=== PATIENT | female | born 1980 | race Caucasian/White ===

== ENCOUNTER 2016-11-01 20:10 | Emergency (ER) | payer OTHER ==
--- NOTE | 2016-11-01 22:21 | ED ---
Kwan Grant Billy, scribed for Ney Parker MD on 11/01/16 at 2209 . Lower Extremity - HPI Summary HPI Summary: Patient is a 36 year-old female coming to [facility] for evaluation of right knee pain and swelling for two weeks. Pain severity 4/10. She is able to move and bend the knee without any significant pain. She has used ibuprofen and ice with no improvement to the swelling. Denies any fever. She states she has had similar symptoms in the past but has never seen a specialist for further care. - History of Current Complaint Chief Complaint: EDExtremityLower Stated Complaint: RIGHT KNEE PAIN Time Seen by Provider: 11/01/16 21:43 Hx Obtained From: Patient Hx Last Menstrual Period: years Mechanism Of Injury: Unknown Onset of Pain: Days Severity Initially: Moderate Severity Currently: Moderate Pain Intensity: 4 Pain Scale Used: 0-10 Numeric Timing: Constant Location: Is Discrete @ - right knee Associated Signs And Symptoms: Positive: Swelling Aggravating Factor(s): Nothing Alleviating Factor(s): Nothing Able to Bear Weight: Yes - Allergies/Home Medications Allergies/Adverse Reactions: Allergies Allergy/AdvReac Type Severity Reaction Status Date / Time Latex Allergy Intermediate Rash Verified 06/23/16 17:25 Adhesive Tape Allergy Mild Rash Verified 06/23/16 17:25 Amoxicillin AdvReac Mild See Comment Verified 06/23/16 17:25 PMH/Surg Hx/FS Hx/Imm Hx Endocrine/Hematology History: Denies: Hx Diabetes, Hx Thyroid Disease Cardiovascular History: Reports: Hx Embolism - Pulmonary, Other Cardiovascular Problems/Disorders - ENDOCARDITIS Denies: Hx Hypertension Respiratory History: Reports: Hx Asthma, Hx Pulmonary Embolism Denies: Hx Chronic Obstructive Pulmonary Disease (COPD) GI History: Denies: Hx Ulcer History: Reports: Hx Kidney Stones - 2002, Hx Renal Disease - history of stones Musculoskeletal History: Reports: Hx Orthopedic Injury - Right wrist sx Sensory History: Denies: Hx Contacts or Glasses, Hx Hearing Aid Opthamlomology History: Denies: Hx Contacts or Glasses Psychiatric History: Reports: Hx Substance Abuse Denies: Hx Anxiety, Hx Attention Deficit Hyperactivity Disorder, Hx Eating Disorder, Hx Depression, Hx Panic Disorder, Hx Post Traumatic Stress Disorder, Hx Inpatient Treatment, Hx Schizophrenia, Hx Bipolar Disorder, Hx Suicide Attempt, Hx of Violent Episodes Against Others, Other Psychiatric Issues/ Disorders - Surgical History Surgery Procedure, Year, and Place: tubal ligation; plate in wrist summer 2012 Hx Anesthesia Reactions: No Infectious Disease History: Yes Infectious Disease History: Reports: Hx Hepatitis - HCV unconfirmed, Hx of Known /Suspected MRSA Denies: Hx Clostridium Difficile, Hx Human Immunodeficiency Virus (HIV), Hx Shingles, Hx Tuberculosis, Hx Known/Suspected VRE, Hx Known/Suspected VRSA, History Other Infectious Disease, Traveled Outside the [place] in Last 30 Days - Family History Family History: No FHx of malignant hyperthermia or anesthesia reaction. - Social History Alcohol Use: None Alcohol Amount: per pt report she does not use etoh Hx Substance Use: Yes Substance Use Type: Reports: Heroin, Marijuana, Synthetic Drugs Substance Use Comment - Amount & Last Used: daily Hx Tobacco Use: Yes Smoking Status (MU): Heavy Every Day Tobacco Smoker Type: Cigarettes Amount Used/How Often: 10-15 c igarettes daily Length of Time of Smoking/Using Tobacco: 20 years Have You Smoked in the Last Year: Yes Review of Systems Negative: Fever Positive: Arthralgia, Edema All Other Systems Reviewed And Are Negative: Yes Physical Exam Triage Information Reviewed: Yes Vital Signs On Initial Exam: Initial Vitals Temp Pulse Resp BP Pulse Ox 98.2 F 84 18 115/60 100 11/01/16 20:17 11/01/16 20:17 11/01/16 20:17 11/01/16 20:17 11/01/16 20:17 Vital Signs Reviewed: Yes Appearance: Positive: Well-Appearing, No Pain Distress Skin: Positive: Warm Head/Face: Positive: Normal Head/Face Inspection Eyes: Positive: H[place] ENT: Positive: Hearing grossly normal Neck: Positive: Supple Respiratory/Lung Sounds: Positive: Breath Sounds Present Musculoskeletal: Positive: Other - RT KNEE MILD WARMTH AND SWELLING, MINMAL TENDER, ESSENTIALLY FROM WITH MINIMNAL DISCOMFORT, NO INSTABILITY OR LAXATY Neurological: Positive: Sensory/Motor Intact, Alert, Oriented to Person Place, Time Psychiatric: Positive: Affect/Mood Appropriate Diagnostics - Vital Signs Vital Signs Temp Pulse Resp BP Pulse Ox 11/01/16 20: 98.2 F 84 18 115/60 100 - Laboratory Result Diagrams: 11/01/16 22:40 11/01/16 22:40 Lab Statement: Any lab studies that have been ordered have been reviewed, and results considered in the medical decision making process. - Radiology right knee xray Radiology Interpretation Completed By: Radiologist - Moderate to large right knee joint effusion Re-Evaluation - Re-Evaluation First Eval Comment: results d/w pt Lower Extremity Course/Dx - Diagnoses Provider Diagnoses: Knee swelling Discharge - Discharge Plan Condition: Stable Disposition: HOME Prescriptions: Naproxen TAB* [Naprosyn TAB*] 500 mg PO BID #20 tab Patient Education Materials: Swollen Knee Joint (ED) Referrals: Sharmin Jamison MD [Primary Care Provider] - Brandon Diaz MD [Medical Doctor] - The documentation as recorded by the Kwan lambert Billy accurately reflects the service I personally performed and the decisions made by me, Ney Parker MD.
--- NOTE | 2016-11-01 22:54 | RAD ---
INDICATION: Right knee swelling and pain COMPARISON: None TECHNIQUE: 2 view radiograph of the right knee. FINDINGS: The visualized bones are well-corticated and properly aligned. The joint spaces are properly maintained. There is a moderate to large joint effusion. There is no acute fracture, dislocation or other focal bony abnormality. IMPRESSION: Moderate to large right knee joint effusion .
[2016-11-01 22:59] LABS: Hematocrit 42 % (35-47); Hemoglobin 13.9 g/dl (12.0-16.0); Mean Corpuscular HGB Conc 33 g/dl (31-36); Mean Corpuscular Hemoglobin 28 pg (27-31); Mean Corpuscular Volume 86 fL (80-97); Mean Platelet Volume 8 um3 (7.4-10.4); Red Blood Count 4.93 10^6/ul (4.0-5.4); Red Cell Distribution Width 13 % (10.5-15)
[2016-11-01 23:14] LABS: Albumin 3.6 g/dL (3.2-5.2); BUN/Creatinine Ratio 17.3 (8-20); Calcium 9.4 mg/dL (8.6-10.3); EGFR African American 113.1 (>60); EGFR Non-African American 87.9 (>60); Potassium 4.3 mmol/L (3.5-5.0); Total Bilirubin 0.3 mg/dL (0.2-1.0); Total Protein 7.6 g/dL (6.4-8.9)
[2016-11-01 23:41] LABS: Erythrocyte Sed Rate 46 mm/Hr (0-14)
[2016-11-01] MEDS ORDERED: Naproxen TAB* 250 MG PO ONE (23:41)
[2016-11-02 00:49] VITALS: BP 138/98
== END 2016-11-02 00:48 | disposition home or self-care (01) ==
LOC: ED 20:10
DX: M25.461 Effusion, right knee (principal); M25.561 Pain in right knee; F17.210 Nicotine dependence, cigarettes, uncomplicated; Z88.0 Allergy status to penicillin
CPT/HCPCS: 36415; 80053; 85025; 85652; 99282; A9270-GY

== ENCOUNTER 2017-02-09 15:19 | Emergency (ER) | payer OTHER ==
--- NOTE | 2017-02-09 16:11 | ED ---
Lower Extremity - HPI Summary HPI Summary: 36F presents with right knee swelling for months. She has history of this. No new injury. full ROM. no redness to joint or fever. Takes ibuprofen for it and ices it. no numbness or tingling. - History of Current Complaint Chief Complaint: EDExtremityLower Stated Complaint: RT KNEE SWOLLEN Time Seen by Provider: 02/09/17 15:45 Hx Last Menstrual Period: years Pain Intensity: 0 - Allergies/Home Medications Allergies/Adverse Reactions: Allergies Allergy/AdvReac Type Severity Reaction Status Date / Time Latex Allergy Intermediate Rash Verified 06/23/16 17:25 Adhesive Tape Allergy Mild Rash Verified 06/23/16 17:25 Amoxicillin AdvReac Mild See Comment Verified 06/23/16 17:25 PMH/Surg Hx/FS Hx/Imm Hx Endocrine/Hematology History: Denies: Hx Diabetes, Hx Thyroid Disease Cardiovascular History: Reports: Hx Embolism - Pulmonary, Other Cardiovascular Problems/Disorders - ENDOCARDITIS Denies: Hx Hypertension Respiratory History: Reports: Hx Asthma, Hx Pulmonary Embolism Denies: Hx Chronic Obstructive Pulmonary Disease (COPD) GI History: Denies: Hx Ulcer History: Reports: Hx Kidney Stones - 2002, Hx Renal Disease - history of stones Musculoskeletal History: Reports: Hx Orthopedic Injury - Right wrist sx Sensory History: Denies: Hx Contacts or Glasses, Hx Hearing Aid Opthamlomology History: Denies: Hx Contacts or Glasses Psychiatric History: Reports: Hx Substance Abuse Denies: Hx Anxiety, Hx Attention Deficit Hyperactivity Disorder, Hx Eating Disorder, Hx Depression, Hx Panic Disorder, Hx Post Traumatic Stress Disorder, Hx Inpatient Treatment, Hx Schizophrenia, Hx Bipolar Disorder, Hx Suicide Attempt, Hx of Violent Episodes Against Others, Other Psychiatric Issues/ Disorders - Surgical History Surgery Procedure, Year, and Place: tubal ligation; plate in wrist summer 2012 Hx Anesthesia Reactions: No - Immunization History Date of Tetanus Vaccine: unk Date of Influenza Vaccine: none Infectious Disease History: Yes Infectious Disease History: Reports: Hx Hepatitis - HCV unconfirmed, Hx of Known /Suspected MRSA Denies: Hx Clostridium Difficile, Hx Human Immunodeficiency Virus (HIV), Hx Shingles, Hx Tuberculosis, Hx Known/Suspected VRE, Hx Known/Suspected VRSA, History Other Infectious Disease, Traveled Outside the [place] in Last 30 Days - Family History Known Family History: Positive: Unknown Family History: No FHx of malignant hyperthermia or anesthesia reaction. - Social History Alcohol Use: None Alcohol Amount: per pt report she does not use etoh Hx Substance Use: Yes Substance Use Type: Reports: Heroin, Marijuana, Synthetic Drugs Substance Use Comment - Amount & Last Used: daily Hx Tobacco Use: Yes Smoking Status (MU): Heavy Every Day Tobacco Smoker Type: Cigarettes Amount Used/How Often: 10-15 c igarettes daily Length of Time of Smoking/Using Tobacco: 20 years Have You Smoked in the Last Year: Yes Review of Systems Negative: Fever Negative: Chest Pain Negative: Shortness Of Breath Positive: Edema - right knee All Other Systems Reviewed And Are Negative: Yes Physical Exam Triage Information Reviewed: Yes Vital Signs On Initial Exam: Initial Vitals Temp Pulse Resp BP Pulse Ox 97.8 F 112 18 147/89 100 02/09/17 15:34 02/09/17 15:34 02/09/17 15:34 02/09/17 15:34 02/09/17 15:34 Vital Signs Reviewed: Yes Appearance: Positive: Well-Appearing Skin: Positive: Warm, Dry Head/Face: Positive: Normal Head/Face Inspection Eyes: Positive: Normal, Conjunctiva Clear Respiratory/Lung Sounds: Positive: Clear to Auscultation, Breath Sounds Present Cardiovascular: Positive: Normal, RRR Musculoskeletal: Positive: Strength/ROM Intact - right knee, Edema Right - right knee, Other - good pulses, joint is not hot and no erythema. Diagnostics - Vital Signs Vital Signs Temp Pulse Resp BP Pulse Ox 02/09/17 16:00 97.9 F 104 16 121/73 100 02/09/17 15:34 97.8 F 112 18 147/89 100 - Laboratory Lab Statement: Any lab studies that have been ordered have been reviewed, and results considered in the medical decision making process. Lower Extremity Course/Dx - Course Course Of Treatment: 36F presents with right knee swelling for months. She has history of this. No new injury. full ROM. no redness to joint or fever. Takes ibuprofen for it and ices it. no numbness or tingling. on exam joint does not appear septic or like gout. appears like bursitis, explained treat with RICE and ibuprofen. has been seen here in past for this but at that time joint was slight red which today it is not and had neg workup. told to follow up with ortho for def managment. patient understands and agrees with plan - Diagnoses Differential Diagnosis/HQI/PQRI: Positive: Bursitis, Fracture (Closed), Sprain, Strain Provider Diagnoses: Effusion, right knee Discharge - Discharge Plan Condition: Good Disposition: HOME Patient Education Materials: Swollen Knee Joint (ED) Referrals: Sharmin Jamison MD [Primary Care Provider] - Alexander Rowe MD [Medical Doctor] - Additional Instructions: Take ibuprofen every 6 hours as needed for pain Apply ice, rest, elevate Follow up with ortho Return to ED if develop hot red joint or fever or any new or worsening symptoms
[2017-02-09 16:24] VITALS: BP 129/78
== END 2017-02-09 16:15 | disposition home or self-care (01) ==
LOC: ED 15:19
DX: M25.461 Effusion, right knee (principal); F17.210 Nicotine dependence, cigarettes, uncomplicated; Z88.0 Allergy status to penicillin
CPT/HCPCS: 99282

== ENCOUNTER 2017-05-26 15:08 | Inpatient (IN) | payer OTHER ==
[2017-05-26] MEDS ORDERED: Ondansetron INJ* 2 MG/ML VIAL IV ONE (15:56)
[2017-05-26] MEDS ORDERED: Morphine INJ* 4 MG/ML 1 ML CARPUJECT IV ONE (15:56)
[2017-05-26] MEDS ORDERED: Vancomycin(*) 750 MG in NS 0.9% 250 ML* 250 ML IVPB ONE (16:00)
[2017-05-26] MEDS ORDERED: Vancomycin(*) 1,000 MG VIAL IVPB SCH (16:00)
[2017-05-26 16:03] LABS: Hematocrit 42 % (35-47); Hemoglobin 14.1 g/dl (12.0-16.0); Mean Corpuscular HGB Conc 33 g/dl (31-36); Mean Corpuscular Hemoglobin 28 pg (27-31); Mean Corpuscular Volume 83 fL (80-97); Mean Platelet Volume 10 um3 (7.4-10.4); Red Blood Count 5.12 10^6/ul (4.0-5.4); Red Cell Distribution Width 16 % (10.5-15); White Blood Count 3.1 10^3/ul (3.5-10.8)
[2017-05-26 16:04] LABS: Comments Flag Yes
[2017-05-26 16:08] LABS: Add Diff/Slide Review? Slide Review Added
[2017-05-26 16:09] LABS: Albumin 3.1 g/dL (3.2-5.2); BUN/Creatinine Ratio 37.7 (8-20); EGFR African American 75.9 (>60); Globulin 3.6 g/dL (2-4); Potassium 3.1 mmol/L (3.5-5.0); Total Bilirubin 1.6 mg/dL (0.2-1.0); Total Protein 6.7 g/dL (6.4-8.9)
[2017-05-26] MEDS: NS 0.9% 1000 ML*IV.FLUID IV ONE ×2 (16:10→17:02)
[2017-05-26 16:11] LABS: Troponin I 0.01 ng/mL (<0.04)
--- NOTE | 2017-05-26 16:45 | RAD ---
Indication: Sepsis. Single frontal view of the chest performed at 1600 hours was reviewed. Comparison is made with previous exam dated December 11, 2015. Interstitial edema is noted consistent with vascular congestion. No alveolar consolidation is noted. The heart is mildly enlarged. IMPRESSION: CARDIOMEGALY WITH INTERSTITIAL EDEMA CONSISTENT WITH VASCULAR CONGESTION.
[2017-05-26] MEDS ORDERED: Lidocaine 1%* 5 ML VIAL ONE (17:06)
[2017-05-26] MEDS: NS 0.9% 1000 ML* 3,000 ML IV ONE ×2 (17:32→19:46)
[2017-05-26] MEDS ORDERED: Morphine INJ* 10 MG/ML 1 ML CARPUJECT IV PRN (17:33)
[2017-05-26] MEDS ORDERED: Acetaminophen TAB* 325 MG PO PRN (17:33)
[2017-05-26] MEDS ORDERED: Vancomycin(*) 1,000 MG in NS 0.9% 250 ML* 250 ML IVPB SCH (17:34)
[2017-05-26] MEDS ORDERED: Iodixanol* (CONTRAST) 320 MG/ML 100 ML SDV IV ONE (17:36)
[2017-05-26] MEDS ORDERED: Albuterol 2.5 MG/3 ML NEB.SOL* (0.083%) INH PRN (17:37)
[2017-05-26] MEDS ORDERED: Potassium Chlor TAB* 20 MEQ TAB.ER PO ONE (17:37)
[2017-05-26] MEDS ORDERED: Vancomycin per Pharmacy* NOTE FOLLOW UP PRN (17:48)
--- NOTE | 2017-05-26 18:14 | RAD ---
Indication: Shortness of breath, sepsis. Contrast: Administered 64.2 ml of Contrast -- mg/ml CTA of the chest was performed on IV contrast administration. Coronal and sagittal reconstructed images were obtained. The pulmonary arterial tree is well opacified. No evidence of filling defects are noted. There is periaortic soft tissue which may represent prevascular space adenopathy. There may be subcarinal adenopathy which are low density. The heart demonstrates no pericardial effusion. The lung chen demonstrates innumerable infiltrates of varying sizes throughout both lung chen. Findings are consistent with septic emboli although no cavitation is noted at the current time. The visualized abdominal organs are otherwise unremarkable. IMPRESSION: Diffuse bilateral nodular densities which are poorly marginated and of varying sizes consistent with septic emboli. No definite cavitation is noted. There is suggestion of mediastinal and hilar adenopathy noted.
[2017-05-26] MEDS: NS 0.9% 1000 ML* 1,000 ML IV SCH (19:46)
[2017-05-26] MEDS: Cefepime 2 GM in Dextrose(*) 2 GM/50 ML BAG IV SCH (19:46)
[2017-05-26] MEDS ORDERED: traMADol TAB* 50 MG PO PRN (20:31)
[2017-05-26 21:05] LABS: Urine Bacteria 1+ (Absent); Urine Bilirubin Negative (Negative); Urine Glucose Negative (Negative); Urine Nitrite Negative (Negative)
[2017-05-26] MEDS: Vancomycin(*) 1,000 MG in NS 0.9% 250 ML* 250 ML IVPB SCH (21:49)
--- NOTE | 2017-05-26 21:49 | RAD ---
Indication: Worsening hypoxia. Single frontal view of the chest performed at 2120 hours was reviewed. Comparison is made with previous exam dated earlier the same day. Progressive interstitial and alveolar infiltrates are noted. This may represent worsening pneumonia. IMPRESSION: PROGRESSIVE INTERSTITIAL AND ALVEOLAR INFILTRATES WITH CONSOLIDATION. THIS LIKELY REPRESENTS INFECTIOUS PROCESS.
--- NOTE | 2017-05-26 21:54 | HP ---
CC: [facility]* HISTORY AND PHYSICAL: DATE OF ADMISSION: 05/26/17 PRIMARY CARE PROVIDER: [facility]. She does not have a routine provider over there, but she does see them occasionally. ATTENDING PHYSICIAN WHILE IN THE HOSPITAL: Dr. Donta Wyatt * (report dictated by Odin Hampton NP). CONSULTING INFECTIOUS DISEASES SPECIALIST: Dr. Cain. CONSULTING WINDOWS SYSTEMS ADMINISTRATOR: Dr. Cuenca. CONSULTING APPEALS OFFICER: Dr. Mccarthy. CONSULTING SURGEON: Dr. Montanez. CHIEF COMPLAINT: Left axillary tenderness and abscess. HISTORY OF PRESENTING ILLNESS: Mrs. Tomlin is a 36-year-old female patient, who has a history of asthma along with IV drug use and a history of hepatitis C. She comes into the ED today stating that about 6 to 7 days ago, she was using IV heroin. Shortly thereafter, she noticed a bump underneath her right axilla. She noticed that over the last few days, she was having fevers, chills , aching all over, she was having chest discomfort similar to when she had endocarditis in the past. She had tricuspid endocarditis in 2014. She says there is aching all over, the pain became unbearable toward that swollen area was under her axilla on the right side. It became tender, warm and she was concerned that she may have another active infection. She finally came into the ER. She denied any specific joint pain. She denied having any abdominal pain. She denied any nausea, vomiting, or diarrhea. There has been no URI symptoms. Denies having any bleeding or easy bruising. She came into the ED, was ultimately found to be leukopenic, thrombocytopenic, hypotensive and there was concern for infection and sepsis. We were asked to evaluate for admission. PAST MEDICAL HISTORY: Significant for: 1. IV drug use. 2. Asthma. PAST SURGICAL HISTORY: She has had a tubal ligation. HOME MEDICATIONS: Denied. ALLERGIES TO MEDICATIONS: Include LATEX, TAPE, and AMOXICILLIN. FAMILY HISTORY: Mother in MVA when she was 36. Father's history is unknown. SOCIAL HISTORY: She is a half a pack a day smoker. Does not drink alcohol. She does use IV heroin almost on a daily basis. Surrogate decision maker is her , Bren. REVIEW OF SYSTEMS: There is a documented fever at home, but none documented here, said she got as high as 101. She denies having any significant weight change. No double vision. No ear discharge. No rhinorrhea. No sore throat. No thyroid enlargement. There was chest pain, she describes as sharp stabbing pain, worse with deep breath. No shortness of breath. No abdominal pain. There was no nausea, no vomiting, no dysuria, no frequency. There is no loss of consciousness. No pruritus. No skin ulcerations. Review of 14 systems completed, all others negative. PHYSICAL EXAMINATION GENERAL: At this time, Mrs. Tomlin is a 36-year-old female patient, she appears to be older than stated age, she appears to be chronically ill appearing. She is sitting in the ER stretcher. She does not appear to be in any acute distress. VITAL SIGNS: Initially when she came in with a blood pressure of 73/40, pulse 115, respirations 20, O2 sat 92%, temperature 97.7. Her last blood pressure was 92/50, pulse 95, respirations 15, O2 sat 97%. HEENT: Head is atraumatic. Eyes: EOMs intact. Sclerae are anicteric and not pale. Throat: Oral mucosa appears to be dry. No oropharyngeal erythema. NECK: Supple. LUNGS: Clear to auscultation. They are diminished, but no wheezes, rales, or rhonchi. HEART: Sounds S1, S2. She does have a grade 2-3 murmur in the aortic listening area. ABDOMEN: Soft, flat. She did appear to have splenomegaly on my exam. Bowel sounds present. EXTREMITIES: Pulses were 2+ throughout. She is moving all 4 extremities. NEUROLOGIC: She is awake, she is alert, she is oriented x3. No gross focal deficits. SKIN: Intact. She does have an area under the right axilla area just near the biceps and area of induration, swelling, pain, and tenderness that was aspirated by Dr. Montanez, it is now covered with a Kerlix. DIAGNOSTIC STUDIES/LAB DATA: Revealed WBC of 3.1, RBC of 5.12, hemoglobin 14.1 , hematocrit of 43, platelet count of 18,000. INR 0.96, PTT of 32.6. Sodium was 132, potassium was 3.1, chloride of 96, bicarb 26, BUN 40, creatinine 1.06, glucose 146, lactate 2.9, calcium 9. Total bili 1.6, AST 25, ALT 10, alk phos 155. Troponin 0.01. Albumin of 3.1. She did have a chest x-ray obtained today, on my impression, I do not appreciate any acute infiltrates. It does appear that she has some pulmonary edema. Radiology read it as cardiomegaly with interstitial edema consistent with vascular congestion. She had an EKG obtained today, which showed a normal sinus rhythm at a rate of 75. No ST elevations or T-wave inversions. Old medical records were reviewed again. Previously in the past, she did grow out MRSA in the blood and also has grown out pseudomonas as well in the blood and again she did have previously tricuspid endocarditis. Old medical records reviewed. ASSESSMENT AND PLAN: Mrs. Tomlin is a 36-year-old female patient, coming into the ED today with complaints of again right axillary pain, swelling and a nodule. On evaluation today found to be septic, should be admitted under inpatient status to our ICU for: 1. Severe sepsis. Again most likely this is from an infected presumably hematoma or abscess to the left axilla could be staph or pseudomonas again. I am concerned though that she could have again septic emboli and she certainly could have endocarditis again. I touch base with Dr. Cain and Dr. Montanez and Dr. Mccarthy. Dr. Montanez helped that with I and D and aspirating and we did the collection and this is being sent down to lab for analysis. Dr. Cain is recommended vancomycin and blood cultures which we have sent. I am giving her 3 L of fluids. In addition to this, we are going to go ahead and get an echocardiogram to again reevaluate for endocarditis. CT of the chest was ordered by the ER physicians. Dr. Mccarthy at this point felt that we should go ahead and again hydrate her aggressively, treat her for sepsis. She does not appear to require intubation at this point and again I felt she is responding to IV fluids currently, so I think we can hold off on pressors. We will repeat though lactic acid as well as it was 2.9. 2. Thrombocytopenia. This could be again multifactorial. It is unclear if the differentials broadly could be related to HIV, could be ITP, could just be related to consumption as she does have a pretty significant spleen. She previously with her endocarditis did drop down to 50,000 and came back with IV antibiotics treatment. I did touch base with Dr. Cuenca. He recommended checking HIV. We would like to give her 24 hours with antibiotics. She is not actively bleeding and likely she improves, she does and we can consider other therapies such as IVIG, but at this point, we will follow this closely and monitor. I do not think she needs a transfusion at this point. I did get an ultrasound of the spleen and liver. 3. History of IV drug use. We will continue with supportive care. She is following the step program. At this point, she is not interested in Suboxone. I did order morphine for pain for the time being. 4. Asthma. P.r.n. albuterol has been ordered. 5. Hypokalemia. We will go ahead and replace this with p.o. potassium. 6. Acute renal failure. At this point, we are going to hydrate her and reevaluate her labs in the morning. 7. DVT prophylaxis. SCDs only. 8. Code status. Full code. TIME SPENT: On admission was approximately 70 minutes, greater than half the time spent [id number] with the patient obtaining my history and physical, other half of the time spent going over the plan of care with the patient and implementing plan of care. I did discuss the plan of care with my attending, Dr. Wyatt; he is in agreement. ODIN HAMPTON NP [id number]/[facility] #: [id number] CARLOS
[2017-05-27] MEDS ORDERED: Morphine INJ* 10 MG/ML 1 ML CARPUJECT IV PRN (00:20)
[2017-05-27] MEDS ORDERED: Morphine INJ* 4 MG/ML 1 ML CARPUJECT IV ONE ×2 (00:20→00:23)
[2017-05-27] MEDS ORDERED: oxyCODONE TAB* 5 MG TAB PO PRN (00:22)
[2017-05-27] MEDS ORDERED: Morphine INJ* 4 MG/ML 1 ML CARPUJECT ONE (00:25)
[2017-05-27] MEDS ORDERED: LORazepam INJ* 2 MG/ML 1 ML VIAL IV PUSH ONE (00:33)
[2017-05-27] MEDS ORDERED: LORazepam INJ* 2 MG/ML 1 ML VIAL ONE ×2 (00:43→05:23)
[2017-05-27 00:57] LABS: FIO2 100
[2017-05-27 01:01] LABS: PCO2 Arterial 40 mmHg (35-45)
[2017-05-27] MEDS: Cefepime 2 GM in Dextrose(*) 2 GM/50 ML BAG IV SCH (02:18)
[2017-05-27] MEDS: Morphine INJ* 10 MG/ML 1 ML CARPUJECT IV PRN ×2 (04:21→18:17)
[2017-05-27] MEDS: NS 0.9% 1000 ML* 1,000 ML IV SCH (05:10)
[2017-05-27] MEDS ORDERED: LORazepam INJ* 2 MG/ML 1 ML VIAL IV PUSH PRN (05:20)
[2017-05-27] MEDS ORDERED: Succinylcholine* 20 MG/ML 10 ML VIAL ONE (06:06)
[2017-05-27] MEDS ORDERED: Etomidate* 2 MG/ML 20 ML VIAL (40 MG) ONE (06:10)
[2017-05-27] MEDS ORDERED: Propofol* 100 ML ONE (06:16)
--- NOTE | 2017-05-27 06:31 | PRO ---
CC: [facility]; Harjinder Cain MD * PROCEDURE REPORT: DATE OF PROCEDURE: 05/26/17 - ROOM #ICU-05 HISTORY: The patient is a 36-year-old female with a history of intravenous drug abuse, who presents with evidence of sepsis and I have been asked to consult on her regarding possible drainage of an abscess and possible central venous access. On examination today, she is a well-developed, well-nourished, slender female. She is alert and coherent and does not actually appear acutely ill. Skin is warm, well perfused. In the right upper arm, may be 5 cm below the axilla, there is a tender, firm, indurated mass consistent with a deep abscess. There is no surrounding erythema. There is no streakiness or cellulitis. The arm is not edematous, it is well perfused. I do not appreciate any puncture wounds in this area. Reviewing her laboratory studies, which shows a white blood count of 3000, a platelet count of 18,000, differential is relatively normal. INR is normal. Electrolytes are relatively normal, most significant abnormalities are lactic acidosis. Creatinine is slightly elevated at 1.06 and a trace elevation of her liver chemistries and a potassium of 3.1. I discussed the case with hospitalist as well as with the patient and I do not recommend putting central venous access with a platelet count of 18,000 in someone who has adequate peripheral access, and a second peripheral access was obtained at the time of my visit, so she now has 2 good peripheral lines working. So, I will defer on putting central venous access with a low platelet count like this. After discussion with the hospitalist and with the patient, it was decided that aspiration of the abscess will be carried out. Again, this was over concern about thrombocytopenia and increased bleeding. The abscess feels relatively deep, like it is probably subfascial or intramuscular. DESCRIPTION OF PROCEDURE: Therefore, after discussion with the patient, the area was prepped with alcohol. A small field of 1% plain lidocaine was placed and then an 18-gauge needle used to aspirate into the mass where 2 mL of what appears to be pus and blood are obtained. It looks like it could be infected hematoma. After removing this, she felt that the area had less pressure and was feeling better. A gauze wrapped dressing was placed for compression and the specimen was sent in a sterile container to the laboratory for Gram stain, culture and sensitivity. We will continue to follow her along with you and if she does not start to defervesce or if she decompensates in any way, certainly the abscess could be opened more widely and it would be preferential if this were done when the platelet count were higher, but if necessary, we could do it at this level and provide a tight compression bandage for hemostasis. [id number]/[facility] #: [id number] MTDD
[2017-05-27] MEDS ORDERED: Midazolam* 1 MG/ML 2 ML VIAL (2 MG) ONE (07:06)
[2017-05-27] MEDS: Vancomycin(*) 1,000 MG in NS 0.9% 250 ML* 250 ML IVPB SCH ×3 (07:12→22:18)
[2017-05-27 07:35] LABS: White Blood Count 7.9 10^3/ul (3.5-10.8)
[2017-05-27 07:39] LABS: Add Diff/Slide Review? Slide Review Added; Comments Flag Yes; Hematocrit 37 % (35-47); Hemoglobin 12.5 g/dl (12.0-16.0); Mean Corpuscular HGB Conc 34 g/dl (31-36); Mean Corpuscular Hemoglobin 28 pg (27-31); Mean Corpuscular Volume 84 fL (80-97); Mean Platelet Volume 10 um3 (7.4-10.4); Red Blood Count 4.44 10^6/ul (4.0-5.4); Red Cell Distribution Width 16 % (10.5-15)
[2017-05-27] MEDS: Propofol* 100 ML IV SCH ×2 (07:41→23:05)
[2017-05-27 07:45] LABS: BUN/Creatinine Ratio 41.4 (8-20); Blood Urea Nitrogen 29 mg/dL (6-24); CO2 Carbon Dioxide 19 mmol/L (22-32); Calcium 7.5 mg/dL (8.6-10.3); EGFR African American 122.5 (>60); EGFR Non-African American 95.2 (>60); Glucose 145 mg/dL (70-100); Sodium 137 mmol/L (133-145)
[2017-05-27 07:55] LABS: Anion Gap 6 mmol/L (2-11); Chloride 112 mmol/L (101-111)
[2017-05-27 08:03] LABS: Immature Granulocytes 15 % (0-9); Neutrophil % 65 % (38-83); Reactive Lymph % 1 % (0-6); Toxic Granulation 1+
[2017-05-27 08:04] LABS: Add Path Review? YES
--- NOTE | 2017-05-27 08:34 | RAD ---
Indication: Septic shock. Endocarditis. Confirm ET tube placement. Comparison: May 26, 2017 CT and chest radiograph. Technique: Upright AP 0638 hours Report: Endotracheal tube tip 3 cm above the Dianne. Nasogastric tube passes to the stomach and outside the [id number] caudally. Severe bilateral alveolar infiltrates with significant interval worsening compared with the 2118 hours exam of one day prior. Subtle nodular pattern to the infiltrates. Small RIGHT pleural effusion without gross change. Negative for pneumothorax. Negative for cardiomegaly. The central pulmonary vasculature while largely obscured is grossly unremarkable. IMPRESSION: 1. Acceptable position of the endotracheal tube. 2. Severe bilateral alveolar infiltrates with significant interval worsening compared with the 2118 hours exam of one day prior. Subtle nodular pattern to the infiltrates consistent with septic emboli given the clinical context.
[2017-05-27] MEDS ORDERED: Zosyn per Pharmacy* NOTE FOLLOW UP SCH (09:00)
[2017-05-27] MEDS ORDERED: fentaNYL* 50 MCG/ML 2 ML VIAL (100 MCG VIAL) ONE (09:19)
[2017-05-27] MEDS ORDERED: Midazolam* 1 MG/ML 2 ML VIAL (2 MG) IV ONE (09:24)
[2017-05-27] MEDS ORDERED: fentaNYL* 50 MCG/ML 2 ML VIAL (100 MCG VIAL) IV SLOW PU ONE ×3 (09:24→20:30)
[2017-05-27] MEDS ORDERED: NS 0.9% 1000 ML* 1,000 ML IV ONE ×3 (09:25→19:43)
[2017-05-27] MEDS ORDERED: fentaNYL* 50 MCG/ML 2 ML VIAL (100 MCG VIAL) IV SLOW PU PRN (09:27)
[2017-05-27] MEDS ORDERED: Famotidine SUSP* 40 MG/5 ML ORAL.SYRIN G TUBE ONE (09:29)
--- NOTE | 2017-05-27 09:51 | RAD ---
INDICATION: Abdominal distention COMPARISON: None TECHNIQUE: A single view of the abdomen is submitted. FINDINGS: Bones: There are no acute bony findings. Soft tissues: There is a nasogastric tube in the stomach.. Bowel gas pattern: Nonspecific. The stomach is partially decompressed. There is a an air-filled hollow viscus in left mid abdomen. There is a paucity of gas elsewhere in the abdomen Calcifications: There are no abnormal calcifications. Other: There are bibasilar lung infiltrates. IMPRESSION: NONSPECIFIC BOWEL GAS PATTERN. SUGGEST A FOLLOW-UP ABDOMINAL SERIES IS INDICATED. BIBASILAR LUNG INFILTRATES.
[2017-05-27 10:20] LABS: Call Hep C TO BE CALLED
[2017-05-27 10:25] LABS: Magnesium 1.5 mg/dL (1.9-2.7); Phosphorus 1.2 mg/dL (2.5-5.0)
--- NOTE | 2017-05-27 10:30 | CONS ---
CONSULTATION REPORT: DATE OF CONSULT: 05/27/17 REQUESTING PROVIDER: Odin Hampton NP CONSULTING SERVICE: Infectious Disease. REASON FOR CONSULT: Right arm abscess, sepsis. IMPRESSION: 1. Severe sepsis present on admission. 2. Acute hypoxemic respiratory failure present on admission with likely ARDS. Her initial chest imaging showed diffuse bilateral nodules and infiltrates. In the setting of injection drug use septic pulmonary emboli is a consideration. Comparing this [address] to a 2015 CT, the nodules seem to be in different locations, so I do not think that is just residual from the last episode. 3. Right arm abscess which was aspirated and bloody purulent fluid removed and a Gram stain showed gram-positive cocci in clusters, gram-positive cocci in chains, gram-positive bacillin, gram-negative coccobacilli. 4. Severe thrombocytopenia, 18 yesterday, 15 today; question due to sepsis in the setting of liver or spleen pathology and sequestration versus less likely DIC with normal coagulation studies or TTP however she is not anemic at this point, though her hemoglobin has dropped which could be dilutional as well. Underlying HIV is also a consideration. 5. Injection drug use. 6. History of MRSA endocarditis 2014. 7. Amoxicillin caused yeast infection in the past. 8. Abdominal distention, decreased bowel sounds question bowel pathology or urinary retention. RECOMMENDATION: 1. Continue vancomycin. Goal trough 15 to 20. We will change cefepime to Zosyn to add anaerobic coverage for the arm process and continue the gram negative coverage provided by Cefepime. She had tolerated amoxicillin in the past other than the yeast infection. 2. Abdominal x-ray, place a baker catheter. 3. Blood cultures are pending. We will follow the sensitivity and cultures out of the axillary lesion. HIV antibody is pending as is abdominal ultrasound to look at the spleen and liver. HISTORY OF PRESENT ILLNESS: This is a 36-year-old woman with injection drug use admitted with right arm pain a few days after using IV heroin. The pain is on her right axilla. She also felt fevers, chills, and aches everywhere with some chest pain. It felt like her past episode of endocarditis. She cannot provide any history as she is intubated and sedated, which was obtained from discussion with Odin Hampton NP and review of the medical records. Apparently , the tenderness on the arm and axilla was much worse yesterday, so she came to the emergency room. She also felt to have some shortness of breath. When she came to the ER, white count was 3000 and platelet count 18,000. Lactate was 2.9 , ALT 10, bilirubin 1.6, INR was 1. Blood cultures were sent. Dr. Montanez aspirated right arm abscess and got bloody and purulent fluid. He felt it was an infected hematoma. Gram stain findings listed above. He had a CT of the chest, showed bilateral infiltrates and nodules. She was in the ICU and was more tachypneic overnight having increasing oxygen requirements so was intubated this morning about 6:30. Chest x-ray done after intubation shows a T- tube in the trachea and diffuse bilateral infiltrates involving all lung chen. She is requiring 100% FiO2. PAST MEDICAL HISTORY: 1. Injection drug use. 2. Asthma. 3. Infected endocarditis due to MRSA in 2014. 4. Status post tubal ligation. MEDICATIONS: 1. Tylenol. 2. Albuterol. 3. Cefepime 2 mg every 8 hours. 4. Vancomycin. 5. Propofol infusion. 6. Oxycodone. ALLERGIES: LATEX, TAPE, AMOXICILLIN caused yeast infection. FAMILY HISTORY: Mother , car accident, age 35. Father's history unknown. SOCIAL HISTORY: Injects heroin. No alcohol use. She is . She smokes cigarettes. REVIEW OF SYSTEMS: Unobtainable. She is intubated and sedated. PHYSICAL EXAM: Vital signs: Temperature 36, heart rate 100, respiratory rate 17, blood pressure 130/80, O2 sat is 95%, FiO2 is 100. General: She is intubated and sedated, arouses slightly to touch. HEENT: There is no conjunctival hemorrhage. Oropharynx, there is an endotracheal tube. Mucous membranes are moist. There is a thin bloody fluid in the ET tube. Heart: Regular and tachycardic without murmurs. Lungs: Coarse breath sounds bilaterally. Abdomen: Soft. Mildly distended. Decreased bowel sounds. Skin: There is no rash or hemorrhage. There is right arm area of induration. Mild warmth. No fluctuance or crepitus. Lymph nodes: There is no cervical, supraclavicular, inguinal, axillary, epitrochlear lymphadenopathy. Musculoskeletal: No joint synovitis. DIAGNOSTIC STUDIES/LAB DATA: White blood cell count 7.9, hemoglobin 12.5, platelets 15,000. Creatinine 0.7, lactate down to 1.7. Urinalysis shows blood and bacteria. Please see impressions and recommendations outlined above. Thank you for asking me to see Nabor in consultation. [id number] #: [id number] MTDD
[2017-05-27] MEDS: Chlorhexidine MOUTHWASH 0.12%* 15 ML UDC TOPICAL SCH ×4 (10:58→22:19)
[2017-05-27] MEDS ORDERED: Magnesium Sulf 4 GM/100 ML IV* 4,000 MG/100 ML BAG IVPB ONE (11:06)
[2017-05-27] MEDS ORDERED: Potassium Phosphate IV* 30 MMOLE in NS 0.9% 250 ML* 250 ML IVPB ONE (12:00)
--- NOTE | 2017-05-27 13:20 | HP ---
H&P (Free Text) History and Physical: CRITICAL CARE MEDICINE Date: 05/27/17 Time: 830 SUBJECTIVE: Patient seen and examined. PHYSICAL EXAM: Vital Signs: Reviewed. Neurologic: sedated but tachynic and grimace to pain HEENT: pupils equal. Sclera anicteric. Trachea midline. Cardiovascular: S1 S2 tachy, couldn't appreciate m Respiratory: coarse rales bl Abdomen: Soft, nt. No r/g/r.; axilla dressed Extremities: Warm. Access: piv LABS: Reviewed. IMAGING: Reviewed. MEDICATIONS: Reviewed. ASSESSMENT: 36 F Severe sepsis sec to abscess and likely endocarditis and septic emboli Acute hypoxic resp failure ARDS Severe thrombocytopenia IVDA PLAN: Neurologic: sedated with prop and needs narcs to hold her on top of that. keep comfortable to take away work and demand now. Cardiovascular: Perfusing on low reserve now and need to dec consumption and also needs better vascular vol. fluid bolus. echo planned. may need blaze. Respiratory: Adjusted to aprv and maintain recruitment in order to dec FiO2. will need time with vent. avoid injury. Gastrointestinal: ogt. tf likely later. sup Renal/Metabolic: could take melody with this but f/u needs. baker Infectious Disease: adjustments per ID. f/u potential IE. f/u cx. Hematology: plt quite low and were low in past with illness. Likely multifactorail with dec marrow, sequestration and consumption from sepsis. no active bleeding. dic less likely. Endocrine: f/u needs. Musculoskeletal: skin precautions and f/u axilla wound. Psych/Social: social work eval. Supportive and preventative care as ordered. Vaccine: f/u needs SUP: H2 VTE prophylaxis: scds, hold on chemical for now. Baker catheter given critical illness, monitoring needs for accurate assessment of MELODY and KDIGO criteria for critically ill patients and to avoid potential harms of urinary retention, skin breakdown/ulcers. Disposition: ICU Code Status: Full Critical Care Time: 45min FDante Mccarthy DO
[2017-05-27] MEDS ORDERED: Vancomycin Trough Check NOTE FOLLOW UP ONE (13:30)
[2017-05-27] MEDS ORDERED: fentaNYL PCA* 20 ML PCA SCH ×3 (14:00→23:31)
--- NOTE | 2017-05-27 15:43 | RAD ---
INDICATION: Low platelets. COMPARISON: Correlation is made with a prior CT of the chest from May 26, 2017. TECHNIQUE: Multiple real-time images of the abdomen were obtained. FINDINGS: The liver is normal in echogenicity and moderately enlarged without focal abnormality. There is an area of echogenicity within the gallbladder most consistent with sludge less likely a polyp. The gallbladder wall is diffusely thickened measuring up to 1 cm in thickness. There is a small amount of pericholecystic fluid. No intra or extrahepatic ductal distention is present. The common bile duct measured 0.4 cm in diameter. The pancreas is partially obscured by overlying bowel gas. The visualized portion appears normal. The kidneys are normal in size shape and echogenicity. The right kidney measured 13.5 x 4.0 x 4.6 cm and the left kidney measured 12.4 x 4.4 x 4.6 cm. No hydronephrosis is present. There is a parapelvic cyst present on the left side measuring 2.6 x 1.4 x 2.1 cm. There is a small amount of free intraperitoneal fluid adjacent to the liver and right kidney. The spleen is moderately enlarged measuring 14.9 x 5.5 x 12.8 cm. The abdominal aorta is normal in caliber. IMPRESSION: 1. MODERATE HEPATOSPLENOMEGALY. 2. THICKENED GALLBLADDER WALL. THERE IS ASCITES ADJACENT TO THE LIVER, GALLBLADDER AND RIGHT KIDNEY. THE BLADDER WALL THICKENING MAY BE SECONDARY TO THE ASCITES PRESENT ALTHOUGH ACALCULUS CHOLECYSTITIS CANNOT BE EXCLUDED. RECOMMEND CLINICAL CORRELATION.
[2017-05-28] MEDS: Chlorhexidine MOUTHWASH 0.12%* 15 ML UDC TOPICAL SCH ×4 (00:57→14:34)
[2017-05-28] MEDS ORDERED: Norepinephrine 16MCG/ML IVPRE* 4,000 MCG/250 ML BAG IV ONE (04:21)
[2017-05-28] MEDS: Propofol* 100 ML IV SCH (04:46)
[2017-05-28 05:19] LABS: Albumin 2.1 g/dL (3.2-5.2); BUN/Creatinine Ratio 22.5 (8-20); Calcium 7.4 mg/dL (8.6-10.3); EGFR African American 43.1 (>60); EGFR Non-African American 33.5 (>60); Globulin 2.5 g/dL (2-4); Magnesium 3.1 mg/dL (1.9-2.7); Total Bilirubin 2.1 mg/dL (0.2-1.0); Total Protein 4.6 g/dL (6.4-8.9)
--- NOTE | 2017-05-28 05:21 | PN ---
Progress Note - Progress Note Date of Service: 05/28/17 Note: Called to evaluate the patient's EKG as her QRS morphology changed. Shortly after this change was noted the patient became severely hypotensive. Propofol d/ axel, fentanyl drip decreased to 100mcg/hr, NS 1L bolus started, levophed started at 10mcg/min and vent changed from APRV to pressure control. With these interventions the patient's BP has improved to 90's systolic. Awaiting lab results.
[2017-05-28 05:23] LABS: Potassium 6.9 mmol/L (3.5-5.0); Troponin I 0.23 ng/mL (<0.04)
[2017-05-28 05:25] LABS: Add Diff/Slide Review? Slide Review Added; Comments Flag Yes; Hematocrit 37 % (35-47); Hemoglobin 11.7 g/dl (12.0-16.0); Mean Corpuscular HGB Conc 32 g/dl (31-36); Mean Corpuscular Hemoglobin 29 pg (27-31); Mean Corpuscular Volume 90 fL (80-97); Mean Platelet Volume 11 um3 (7.4-10.4); Red Cell Distribution Width 17 % (10.5-15); White Blood Count 17.2 10^3/ul (3.5-10.8)
[2017-05-28] MEDS ORDERED: Dextrose 50% Syringe 50 ML* 25 GM/50 ML SYRINGE IV PUSH PRN (05:28)
[2017-05-28] MEDS ORDERED: Calcium Gluconate INJ* 1 GM in NS 0.9% 50 ML* 50 ML IVPB ONE (05:28)
[2017-05-28] MEDS ORDERED: Sodium Polystyrene ORAL.SOL* 15 GM/60 ML BTL NG TUBE ONE (05:28)
[2017-05-28] MEDS ORDERED: Insulin REGULAR(*) 1 UNITS UNIT IV PUSH ONE (05:28)
[2017-05-28] MEDS: Vancomycin(*) 1,000 MG in NS 0.9% 250 ML* 250 ML IVPB SCH (05:35)
[2017-05-28] MEDS ORDERED: Sodium Polystyrene ORAL.SOL* 15 GM/60 ML BTL ONE (05:42)
[2017-05-28] MEDS ORDERED: Insulin REGULAR(*) 1 UNITS UNIT ONE (05:42)
[2017-05-28] MEDS ORDERED: CALCIUM GLUCONATE* 1 GM/10 ML VIAL (in Pyxis) ONE (05:43)
[2017-05-28] MEDS ORDERED: Hydrocortisone INJ* 100 MG VIAL IV ONE (06:20)
[2017-05-28] MEDS ORDERED: Hydrocortisone INJ* 100 MG VIAL ONE (06:24)
[2017-05-28] MEDS: Norepinephrine 16MCG/ML IVPRE* 4,000 MCG/250 ML BAG IV SCH ×3 (06:44→12:53)
[2017-05-28] MEDS ORDERED: Vasopressin* 100 UNITS in D5W 250 ML BAG* 245 ML IVPB SCH (06:45)
[2017-05-28] MEDS ORDERED: VASOPRESSIN 20 UNITS/ML 1 ML VIAL ONE (06:54)
[2017-05-28] MEDS ORDERED: Midazolam PREMIX BAG 1 MG/ML* 100 MG/100 ML BAG IV SCH ×2 (07:00→09:37)
--- NOTE | 2017-05-28 08:14 | RAD ---
INDICATION: Infiltrates, follow-up. COMPARISON: Comparison is made with a prior study from May 27, 2017. TECHNIQUE: A portable view of the chest was obtained. FINDINGS: There is an endotracheal tube which projects over the midline tip located just below the level of the clavicular heads. There is a PICC catheter entering on the left side. The catheter tip projects at the junction of the superior vena cava and right atrium. There is a nasogastric tube which demonstrates normal course. There are diffuse interstitial alveolar infiltrates which have improved slightly from the prior study. There is a trace right pleural effusion which appears unchanged. No pneumothorax is seen. IMPRESSION: DIFFUSE INTERSTITIAL AND ALVEOLAR INFILTRATES SLIGHTLY IMPROVED.
--- NOTE | 2017-05-28 08:24 | RAD ---
INDICATION: Septic shock. Evaluate for obstruction. COMPARISON: Similar examination dated May 27, 2017 TECHNIQUE: A single portable AP view of the abdomen was obtained. FINDINGS: A gastric tube is seen terminating below the diaphragm at the expected location of the gastric fundus. There is stool seen at the expected location of the distal colon and rectum. There are no pathologically visible dilated loops of bowel. There is a paucity of bowel gas overall. No definite signs of free air is seen. IMPRESSION: DISTAL COLONIC STOOL AND AN OVERALL PAUCITY OF BOWEL GAS WITHOUT SIGNS OF PATHOLOGIC DILATATION OF THE BOWEL OR FREE INTRAPERITONEAL AIR.
--- NOTE | 2017-05-28 08:38 | PN ---
Progress Note - Progress Note Date of Service: 05/28/17 SOAP: Subjective: cc: sepsis HPI: 36 yo woman with R arm abscess, bacteremia, septic shock; this morning more hypotensive; on 2 pressors now, decreased urine output. No rash or diarrhea per RN and minimal ETT secretions. Objective: [] Vital Signs Temp 36.4 C 05/28/17 08:03 Pulse 115 05/28/17 08:03 Resp 31 05/28/17 08:00 BP 114/79 05/28/17 08:03 Pulse Ox 88 05/28/17 08:03 Intake & Output 05/27/17 05/28/17 05/28/17 18:59 06:59 18:59 Intake Total 3218 5375 Output Total 100 155 Balance 3118 5220 Weight 127 lb 9.6 oz Intake: IV Fluids 2670 4322 KCL & LR 1173 1619 NS (0.9%) 1000 2010 NS to Maintain IV Patency 101 Potassium phosphate 149 Vancomycin 248 250 zosyn 100 342 IVPB 400 KCL & LR 300 mag 100 Medicated IV 148 211 Propofol 148 211 IV Narcotic Infusion 842 Fentanyl 842 Oral 0 Output: Talavera 100 155 Gen:intubated and sedated HEENT:PERRL, MMM Neck:no mass Heart:Regular and tachycardic Lungs:coarse BS BL Abd:+BS NTND mild distended Skin: no rash MSK: R upper arm mild edema no induration crepitus or fluctuance Laboratory Results - last 24 hr 05/26/17 05/26/17 05/27/17 15:45 15:45 07:00 WBC RBC Hgb Hct MCV MCH MCHC RDW Plt Count MPV Neut % (Auto) Lymph % (Auto) [place] % (Auto) Eos % (Auto) Baso % (Auto) Absolute Neuts (auto) Absolute Lymphs (auto) Absolute Monos (auto) Absolute Eos (auto) Absolute Basos (auto) Absolute Nucleated RBC Nucleated RBC % Hem Pathologist Commnt INR (Anticoag Therapy) Sodium Potassium Chloride Carbon Dioxide Anion Gap BUN Creatinine Est GFR ( Amer) Est GFR (Non-Af Amer) BUN/Creatinine Ratio Glucose POC Glucose (mg/dL) Lactic Acid Calcium Phosphorus Magnesium Total Bilirubin AST ALT Alkaline Phosphatase Lactate Dehydrogenase Troponin I Total Protein Albumin Globulin Albumin/Globulin Ratio Vancomycin Trough Hepatitis C Antibody High reactive H HIV 1&2 Antibody Nonreactive 05/27/17 05/27/17 05/27/17 07:00 08:10 13:14 WBC RBC Hgb Hct MCV MCH MCHC RDW Plt Count MPV Neut % (Auto) Lymph % (Auto) [place] % (Auto) Eos % (Auto) Baso % (Auto) Absolute Neuts (auto) Absolute Lymphs (auto) Absolute Monos (auto) Absolute Eos (auto) Absolute Basos (auto) Absolute Nucleated RBC Nucleated RBC % Hem Pathologist Commnt INR (Anticoag Therapy) Sodium Potassium 3.7 Chloride Carbon Dioxide Anion Gap BUN Creatinine Est GFR ( Amer) Est GFR (Non-Af Amer) BUN/Creatinine Ratio Glucose POC Glucose (mg/dL) Lactic Acid Calcium Phosphorus 1.2 L Magnesium 1.5 L Total Bilirubin AST ALT Alkaline Phosphatase Lactate Dehydrogenase TNP 256 Troponin I Total Protein Albumin Globulin Albumin/Globulin Ratio Vancomycin Trough 18.4 Hepatitis C Antibody HIV 1&2 Antibody 05/28/17 05/28/17 05/28/17 04:30 04:30 04:30 WBC 17.2 H RBC 4.10 Hgb 11.7 L Hct 37 MCV 90 MCH 29 MCHC 32 RDW 17 H Plt Count 24 L D MPV 11 H Neut % (Auto) 78.5 Lymph % (Auto) 14.5 L [place] % (Auto) 4.8 Eos % (Auto) 1.8 Baso % (Auto) 0.4 Absolute Neuts (auto) 13.5 H Absolute Lymphs (auto) 2.5 Absolute Monos (auto) 0.8 Absolute Eos (auto) 0.3 Absolute Basos (auto) 0.1 Absolute Nucleated RBC 0.01 Nucleated RBC % 0 Hem Pathologist Commnt INR (Anticoag Therapy) 1.17 H Sodium Potassium Chloride Carbon Dioxide Anion Gap BUN Creatinine Est GFR ( Amer) Est GFR (Non-Af Amer) BUN/Creatinine Ratio Glucose POC Glucose (mg/dL) Lactic Acid 9.2 H* Calcium Phosphorus Magnesium Total Bilirubin AST ALT Alkaline Phosphatase Lactate Dehydrogenase Troponin I Total Protein Albumin Globulin Albumin/Globulin Ratio Vancomycin Trough Hepatitis C Antibody HIV 1&2 Antibody 05/28/17 05/28/17 05/28/17 04:30 05:52 06:46 WBC RBC Hgb Hct MCV MCH MCHC RDW Plt Count MPV Neut % (Auto) Lymph % (Auto) [place] % (Auto) Eos % (Auto) Baso % (Auto) Absolute Neuts (auto) Absolute Lymphs (auto) Absolute Monos (auto) Absolute Eos (auto) Absolute Basos (auto) Absolute Nucleated RBC Nucleated RBC % Hem Pathologist Commnt INR (Anticoag Therapy) Sodium 136 Potassium 6.9 H* D Chloride 111 Carbon Dioxide 10 L* Anion Gap 15 H BUN 39 H Creatinine 1.73 H Est GFR ( Amer) 43.1 Est GFR (Non-Af Amer) 33.5 BUN/Creatinine Ratio 22.5 H Glucose 54 L POC Glucose (mg/dL) 242 H 165 H Lactic Acid Calcium 7.4 L Phosphorus Magnesium 3.1 H Total Bilirubin 2.10 H AST 84 H ALT 23 Alkaline Phosphatase 155 H Lactate Dehydrogenase Troponin I 0.23 H* Total Protein 4.6 L Albumin 2.1 L Globulin 2.5 Albumin/Globulin Ratio 0.8 L Vancomycin Trough Hepatitis C Antibody HIV 1&2 Antibody Trans thoracic echo: mod-severe TR, no TV vegetation, decr RV function Assessment: 1. Septic shock present on admission, w GPC in chains in blood Strep bacteremia ; discussed with micro does not look like Enterococcus, more like VGS; due to abscess, infective endocarditis on the differential as well 2. R arm abscess w what looks like VGS 3. septic shock 4. acute kidney injury 5. acute hypoxemic respiratory failure , present on admission, with ARDS Plan: 1. hold vanco and check trough this afternoon, pharmacy to dose from there; continue zosyn same dose for now 2. CAMACHO when able 3. recheck BC (ordered)
[2017-05-28] MEDS: fentaNYL PCA* 20 ML PCA SCH ×2 (08:49→13:36)
[2017-05-28] MEDS: Sodium Bicarbonate 8.4% IV* 150 MEQ in D5W 1000 ML BAG* 1,000 ML IVPB SCH ×2 (08:50→14:32)
[2017-05-28] MEDS ORDERED: Cisatracurium* 2 MG/ML MDV 5 ML ONE (09:14)
[2017-05-28] MEDS ORDERED: Sodium Bicarbonate 8.4%* 50 ML SYRINGE ONE (09:17)
[2017-05-28] MEDS ORDERED: Sodium Bicarbonate 8.4% IV* 50 ML VIAL IV ONE (09:34)
[2017-05-28] MEDS ORDERED: Cisatracurium* 100 MG in NS 0.9% 250 ML* 200 ML IVPB SCH (09:45)
[2017-05-28] MEDS ORDERED: Cisatracurium* 2 MG/ML MDV 5 ML IV ONE (09:45)
[2017-05-28] MEDS ORDERED: Albumin Human 5%* 250 ML BTL IV ONE (09:56)
[2017-05-28] MEDS: Albumin Human 5%* 500 ML in PREMIX* 0 ML IV SCH ×2 (10:00→11:08)
[2017-05-28] MEDS ORDERED: NS 0.9% IVPB SCH (10:06)
[2017-05-28] MEDS ORDERED: CISATRACURIUM IVPB SCH (10:06)
--- NOTE | 2017-05-28 11:55 | PN ---
Progress Note - Progress Note Date of Service: 05/28/17 Note: CRITICAL CARE MEDICINE Date: 05/27/17 Time: 900 SUBJECTIVE: Patient seen and examined. PHYSICAL EXAM: Vital Signs: Reviewed. Neurologic: sedated but tachynic still. no response to pain. HEENT: pupils equal. Sclera aicteric and mild edema. Trachea midline with ett in place Cardiovascular: S1 S2 tachy to 120s, couldn't appreciate m Respiratory: coarse rales bl Abdomen: Soft, distended, no bs. axilla with induration and erythema Extremities: cold, cyanotic Access: picc LABS: Reviewed. IMAGING: Reviewed. MEDICATIONS: Reviewed. ASSESSMENT: 36 F with MSOF Septic shock sec to right sided endocarditis and multiple septic emboli Acute hypoxic resp failure ARDS Acute on chronic RV systolic failure Axilla abscess Severe thrombocytopenia - mutifactorial Consumptive coagulopathy IVDA ATN Ischemic hepatitis Lactic acidosis PLAN: Neurologic: sedated with versed and fent now and need to dec O2 consumption and give ards more time with use of paralytics. Cardiovascular: Not Perfusing on levophed inc to 50mcg this am with bp able to capture. Bedside echo with RV pressure overload and beyond severely depressed RV systolic function with severe TR. IVC dilated. Give a bolus of albumin to try and maintain patency of flow with RV failure, but unfortunately likely going to be to no avail. Further inotropic agents will not benefit. Not an ecmo rescue candidate given her RV failure and acute hypoxic ards combined with ongoing worsening msof. Respiratory: Adjusted from aprv given RV failure and yet still unable to keep up with oxygenation given cardiopulmonary failure. utilize cisatricurium as able to dec consumption and prevent further lung injury while needing to use high level PCV. Cannot tolerate aprv. Maintain high peep and still needing TV goal of >6ml/kg given degree of acidemia and deadspace. again in a continued decline. Gastrointestinal: hold off on feeds. sup. liver may become shocked too. Renal/Metabolic: severe ATN now with anuric phase ensuing. trying to maintain perfusion. not a crrt candidate at this time. bicarb suppl gtt Infectious Disease: abx as is. d/w surgery and we agree, source is not axilla abscess needing further drain, especial with her current state and plts. Hematology: Multifactorial. consumption will worsen. no chemical proph Endocrine: stress dose steroids. Musculoskeletal: skin precautions and f/u axilla wound. Psych/Social: d/w pts mother in law Tami Tompkins whom I spoke with yesterday afternoon along with pts . Pts is unreachable at present but she will continue to try an reach him. She expressed understanding of the gravity of the situation. Supportive and preventative care as ordered. SUP: H2 VTE prophylaxis: scds. Talavera catheter given critical illness, monitoring needs for accurate assessment of JEWELS and KDIGO criteria for critically ill patients and to avoid potential harms of urinary retention, skin breakdown/ulcers. Disposition: ICU; prognosis dismal. Code Status: Full presently Critical Care Time: 60min FDante Mccarthy DO
[2017-05-28] MEDS ORDERED: Hydrocortisone INJ* 100 MG VIAL IV SCH (13:00)
[2017-05-28 13:42] LABS: Albumin 1.9 g/dL (3.2-5.2); BUN/Creatinine Ratio 22.2 (8-20); EGFR African American 42.3 (>60); EGFR Non-African American 32.9 (>60); Globulin 1.6 g/dL (2-4); Magnesium 2.8 mg/dL (1.9-2.7); Total Bilirubin 2.4 mg/dL (0.2-1.0); Total Protein 3.5 g/dL (6.4-8.9)
[2017-05-28] MEDS ORDERED: Vancomycin Trough Check NOTE FOLLOW UP ONE (13:45)
[2017-05-28 13:47] LABS: Potassium 5.8 mmol/L (3.5-5.0)
[2017-05-28 15:45] VITALS: BP 69/55
--- NOTE | 2017-05-28 16:08 | PN ---
Progress Note - Progress Note Date of Service: 05/28/17 Note: CRITICAL CARE MEDICINE Date: 05/28/17 Time: 1600 Late entry from 1320: Able to discuss with Jesus (pts ) at bedside. Explained condition and pt impending demise. Jesus excused himself as he knew he would not be able to cope. Pts mother in law also present. She expressed understanding and is trying to support. Nursing d/w pts social work advocates from staff and they were coaching pts through some of the process and advocating his return to icu to be with her. He expressed desire to allow pt to pass peacefully without endotracheal tube in place. This was conveyed by the social work at staff at husbands direction via nursing here, however pt not arriving in time to convey these desires. Patients bp delcining again with inc levo to 50. pt had a complex change with bradycardia and junctional starting with eminent demise. Pt staff support group at bedside, including clinician, advocating against cpr and we allowed her to pass without such harms. Will extubate post mortem now in order to allow pts to visit with her as desired. No anticipated post. Time of : 3:59pm. Critical Care Time: additional 15min F. Bryn Mccarthy DO
--- NOTE | 2017-05-28 16:18 | DS ---
CRITICAL CARE MEDICINE DISCHARGE SUMMARY ADMISSION DATE: 05/26/2017 ICU ADMISSION DATE: 05/26/2017 ICU DISCHARGE DATE: 05/28/2017 REFERRING PHYSICIAN: Natacha. DIAGNOSIS: 1. Septic shock. 2. Cardiogenic shock. 3. Infective endocarditis. 4. Pulmonary septic emboli. 5. Acute hypoxic resp failure 6. Adult respiratory distress syndrome. 7. Acute on chronic cor pulmonale and systolic heart failure. 8. Axilla abscess post injection use. 9. Severe thrombocytopenia. 10. Consumptive coagulopathy. 11. History of intravenous drug abuse. 12. Acute tubular necrosis. 13. Ischemic hepatitis. 14. Lactic acidosis. 15. Septic encephalopathy. MEDICATIONS AT DISCHARGE: None. HOSPITAL COURSE: 36 year old female presenting with painful abscess site, from site of injection drug use. History of intravenous drug abuse and sepsis, including endocarditis, with sepsis requiring needle drainage. Aggressive treatment for sepsis but failed high flow oxygen requiring intubation and shock ensuing. Further decompensated right heart failure with acute respiratory distress syndrome and mutisystem organ failure with worsening right sided heart function. Refractory shock and unsurivable state. leaning towards comfort care, but did not return in time, and she began to ya despite high dose vasopressors and all adjunctive therapies and she passed with staff support team at bedside. DISPOSITION: . Luly Mccarthy DO
--- NOTE | 2017-06-04 16:34 | ED ---
Chinmay Grant Alfonso, scribed for Yoin Manzano MD on 05/26/17 at 1544 . HPI Febrile Illness - HPI Summary HPI Summary: This patient is a 36 year old F presenting to [facility] accompanied by and female with a chief complaint of febrile illness since 4 days ago. She reports a skin infection at her right axilla. The patient rates the pain 5/10 in severity. Symptoms alleviated by nothing. Patient reports weakness, right axilla pain, cough, sore throat, dizziness, and lightheadedness. Patient denies abdominal pain, and N/V/D. - History of Current Complaint Chief Complaint: EDGeneral Time Seen by Provider: 05/26/17 15:34 Hx Obtained From: Patient Onset/Duration: Started Days Ago - 4, Still Present Timing: Constant Current Severity: Moderate Pain Intensity: 5 Pain Scale Used: 0-10 Numeric Alleviating Factors: Nothing Associated Signs and Symptoms: Other: - weakness, right axilla pain, cough, sore throat, dizziness, and lightheadedness. Patient denies abdominal pain, and N/V/D. - Additional Pertinent History Primary Care Physician: [id number] - Allergy/Home Medications Allergies/Adverse Reactions: Allergies Allergy/AdvReac Type Severity Reaction Status Date / Time Latex Allergy Intermediate Rash Verified 06/23/16 17:25 Adhesive Tape Allergy Mild Rash Verified 06/23/16 17:25 Amoxicillin AdvReac Mild See Comment Verified 06/23/16 17:25 Home Medications: Home Medications NK [No Home Medications Reported] 05/26/17 [History Confirmed 05/26/17] PMH/Surg Hx/FS Hx/Imm Hx Endocrine/Hematology History: Denies: Hx Diabetes, Hx Thyroid Disease Cardiovascular History: Reports: Hx Embolism - Pulmonary, Other Cardiovascular Problems/Disorders - ENDOCARDITIS Denies: Hx Hypertension Respiratory History: Reports: Hx Asthma, Hx Pulmonary Embolism Denies: Hx Chronic Obstructive Pulmonary Disease (COPD) GI History: Denies: Hx Ulcer History: Reports: Hx Kidney Stones - 2002, Hx Renal Disease - history of stones Musculoskeletal History: Reports: Hx Orthopedic Injury - Right wrist sx Sensory History: Denies: Hx Contacts or Glasses, Hx Hearing Aid Opthamlomology History: Denies: Hx Contacts or Glasses Psychiatric History: Reports: Hx Substance Abuse Denies: Hx Anxiety, Hx Attention Deficit Hyperactivity Disorder, Hx Eating Disorder, Hx Depression, Hx Panic Disorder, Hx Post Traumatic Stress Disorder, Hx Inpatient Treatment, Hx Schizophrenia, Hx Bipolar Disorder, Hx Suicide Attempt, Hx of Violent Episodes Against Others, Other Psychiatric Issues/ Disorders - Surgical History Surgery Procedure, Year, and Place: tubal ligation; plate in wrist summer 2012 Hx Anesthesia Reactions: No - Immunization History Date of Tetanus Vaccine: unk Date of Influenza Vaccine: none Infectious Disease History: No Infectious Disease History: Reports: Hx Hepatitis - HCV unconfirmed, Hx of Known /Suspected MRSA Denies: Hx Clostridium Difficile, Hx Human Immunodeficiency Virus (HIV), Hx Shingles, Hx Tuberculosis, Hx Known/Suspected VRE, Hx Known/Suspected VRSA, History Other Infectious Disease, Traveled Outside the [place] in Last 30 Days - Family History Known Family History: Positive: Other - No FHx of malignant hyperthermia or anesthesia reaction. Family History: No FHx of malignant hyperthermia or anesthesia reaction. - Social History Alcohol Use: None Alcohol Amount: per pt report she does not use etoh Hx Substance Use: Yes Substance Use Type: Reports: Heroin, Marijuana, Synthetic Drugs Substance Use Comment - Amount & Last Used: daily Hx Tobacco Use: Yes Smoking Status (MU): Heavy Every Day Tobacco Smoker Type: Cigarettes Amount Used/How Often: 10-15 c igarettes daily Length of Time of Smoking/Using Tobacco: 20 years Have You Smoked in the Last Year: Yes Review of Systems Positive: Fever. Negative: Chills Negative: Erythema Positive: Sore Throat Negative: Chest Pain Positive: Cough. Negative: Shortness Of Breath Negative: Abdominal Pain, Vomiting, Diarrhea, Nausea Negative: dysuria, hematuria Positive: Other - right axilla pain. Negative: Edema Positive: Other - skin infection at her right axilla. Negative: Rash Neurological: Other - dizziness, lightheadedness, weakness All Other Systems Reviewed And Are Negative: Yes Physical Exam - Summary Physical Exam Summary: Constitutional: Well-developed, Well-nourished, Alert. (-) Distressed Skin: Warm, Dry, 2 cm fluctuant area distal to the right axilla HENT: Normocephalic; Atraumatic Eyes: Conjunctiva normal Neck: Musculoskeletal ROM normal neck. (-) JVD, (-) Stridor, (-) Tracheal deviation Cardio: Rhythm regular, rate normal, Heart sounds normal; Intact distal pulses; The pedal pulses are 2+ and symmetric. Radial pulses are 2+ and symmetric. 3/5 systolic murmur. Pulmonary/Chest wall: Effort normal. (-) Respiratory distress, (-) Wheezes, (-) Rales Abd: Soft, (-) Tenderness, (-) Distension, (-) Guarding, (-) Rebound Musculoskeletal: (-) Edema Lymph: (-) Cervical adenopathy Neuro: Alert, Oriented x3 Psych: Mood and affect Normal Triage Information Reviewed: Yes Vital Signs On Initial Exam: Initial Vitals Temp Pulse Resp BP Pulse Ox 97.7 F 115 20 73/40 92 05/26/17 15:20 05/26/17 15:20 05/26/17 15:20 05/26/17 15:20 05/26/17 15:20 Vital Signs Reviewed: Yes Diagnostics - Vital Signs Vital Signs Temp Pulse Resp BP Pulse Ox 05/26/17 15:20 97.7 F 115 20 73/40 92 - Laboratory Lab Results: Lab Results 05/26/17 05/26/17 05/26/17 Range/Units 15:45 15:45 15:45 WBC 3.1 L (3.5-10.8) 10^3/ul RBC 5.12 (4.0-5.4) 10^6/ul Hgb 14.1 (12.0-16.0) g/dl Hct 42 (35-47) % MCV 83 (80-97) fL MCH 28 (27-31) pg MCHC 33 (31-36) g/dl RDW 16 H (10.5-15) % Plt Count 18 L* (150-450) 10^3/ul MPV 10 (7.4-10.4) um3 Neut % (Auto) 71.1 (38-83) % Lymph % (Auto) 24.3 L (25-47) % [place] % (Auto) 1.9 (1-9) % Eos % (Auto) 1.9 (0-6) % Baso % (Auto) 0.8 (0-2) % Absolute Neuts (auto) 2.2 (1.5-7.7) 10^3/ul Absolute Lymphs (auto) 0.7 L (1.0-4.8) 10^3/ul Absolute Monos (auto) 0.1 (0-0.8) 10^3/ul Absolute Eos (auto) 0.1 (0-0.6) 10^3/ul Absolute Basos (auto) 0 (0-0.2) 10^3/ul Absolute Nucleated RBC 0.01 10^3/ul Nucleated RBC % 0.3 Hem Pathologist Commnt INR (Anticoag Therapy) 0.96 (0.89-1.11) APTT 32.6 (26.0-36.3) seconds Sodium 132 L (133-145) mmol/L Potassium 3.1 L (3.5-5.0) mmol/L Chloride 96 L (101-111) mmol/L Carbon Dioxide 29 (22-32) mmol/L Anion Gap 7 (2-11) mmol/L BUN 40 H (6-24) mg/dL Creatinine 1.06 H (0.51-0.95) mg/dL Est GFR ( Amer) 75.9 (>60) Est GFR (Non-Af Amer) 59.0 (>60) BUN/Creatinine Ratio 37.7 H (8-20) Glucose 146 H (70-100) mg/dL Lactic Acid (0.5-2.0) mmol/L Calcium 9.0 (8.6-10.3) mg/dL Total Bilirubin 1.60 H (0.2-1.0) mg/dL AST 25 (13-39) U/L ALT 10 (7-52) U/L Alkaline Phosphatase 155 H (34-104) U/L Lactate Dehydrogenase 223 (140-271) U/L Troponin I 0.01 (<0.04) ng/mL Total Protein 6.7 (6.4-8.9) g/dL Albumin 3.1 L (3.2-5.2) g/dL Globulin 3.6 (2-4) g/dL Albumin/Globulin Ratio 0.9 L (1-3) Hepatitis C Antibody (Nonreactive) HIV 1&2 Antibody (Nonreactive) 05/26/17 05/26/17 Range/Units 15:45 15:45 WBC (3.5-10.8) 10^3/ul RBC (4.0-5.4) 10^6/ul Hgb (12.0-16.0) g/dl Hct (35-47) % MCV (80-97) fL MCH (27-31) pg MCHC (31-36) g/dl RDW (10.5-15) % Plt Count (150-450) 10^3/ul MPV (7.4-10.4) um3 Neut % (Auto) (38-83) % Lymph % (Auto) (25-47) % [place] % (Auto) (1-9) % Eos % (Auto) (0-6) % Baso % (Auto) (0-2) % Absolute Neuts (auto) (1.5-7.7) 10^3/ul Absolute Lymphs (auto) (1.0-4.8) 10^3/ul Absolute Monos (auto) (0-0.8) 10^3/ul Absolute Eos (auto) (0-0.6) 10^3/ul Absolute Basos (auto) (0-0.2) 10^3/ul Absolute Nucleated RBC 10^3/ul Nucleated RBC % Hem Pathologist Commnt INR (Anticoag Therapy) (0.89-1.11) APTT (26.0-36.3) seconds Sodium (133-145) mmol/L Potassium (3.5-5.0) mmol/L Chloride (101-111) mmol/L Carbon Dioxide (22-32) mmol/L Anion Gap (2-11) mmol/L BUN (6-24) mg/dL Creatinine (0.51-0.95) mg/dL Est GFR ( Amer) (>60) Est GFR (Non-Af Amer) (>60) BUN/Creatinine Ratio (8-20) Glucose (70-100) mg/dL Lactic Acid 2.9 H* (0.5-2.0) mmol/L Calcium (8.6-10.3) mg/dL Total Bilirubin (0.2-1.0) mg/dL AST (13-39) U/L ALT (7-52) U/L Alkaline Phosphatase (34-104) U/L Lactate Dehydrogenase (140-271) U/L Troponin I (<0.04) ng/mL Total Protein (6.4-8.9) g/dL Albumin (3.2-5.2) g/dL Globulin (2-4) g/dL Albumin/Globulin Ratio (1-3) Hepatitis C Antibody High reactive H (Nonreactive) HIV 1&2 Antibody Nonreactive (Nonreactive) Result Diagrams: 05/28/17 04:30 05/28/17 12:45 Lab Statement: Any lab studies that have been ordered have been reviewed, and results considered in the medical decision making process. - Radiology CXR Radiology Interpretation Completed By: Radiologist - CARDIOMEGALY WITH INTERSTITIAL EDEMA CONSISTENT WITH VASCULAR CONGESTION. ED physician has reviewed this radiology report and agrees. - CT CTA Chest CT Interpretation Completed By: Radiologist - Diffuse bilateral nodular densities which are poorly marginated and of varying sizes consistent with septic emboli. No definite cavitation is noted. There is suggestion of mediastinal and hilar adenopathy noted. ED physician has reviewed this radiology report and agrees. - EKG 1548 Cardiac Rate: NL - BPM 75 EKG Rhythm: Sinus Rhythm EKG Interpretation: No STEMI Re-Evaluation - Re-Evaluation First Eval Re-Evaluation Time: 17:00 Change: Improved - responding to fluids 1800 Change: Unchanged Course/Dx - Course Assessment/Plan: This patient is a 36 year old F presenting to [facility] accompanied by and female with a chief complaint of febrile illness since 4 days ago. She reports a skin infection at her right axilla. The patient rates the pain 5/10 in severity. Symptoms alleviated by nothing. Patient reports weakness, right axilla pain, cough, sore throat, dizziness, and lightheadedness. Patient denies abdominal pain, and N/V/D. An EKG reveals NSR. CXR reveals CARDIOMEGALY WITH INTERSTITIAL EDEMA CONSISTENT WITH VASCULAR CONGESTION. ED physician has reviewed this radiology report and agrees. CTA reveals Diffuse bilateral nodular densities which are poorly marginated and of varying. sizes consistent with septic emboli. No definite cavitation is noted. There is suggestion. of mediastinal and hilar adenopathy noted. ED physician has reviewed this radiology report and agrees. Consulted Dr. Montanez (surgeon) who will see the patient in the ED. Patient will be admitted to ICU. The patient is agreeable with this plan. - Diagnoses Provider Diagnoses: Septic pulmonary embolism, Endocarditis due to Staphylococcus, Axillary abscess - Provider Notifications Discussed Care Of Patient With: Odin Hampton Time Discussed With Above Provider: 16:50 Instructed by Provider To: Other - Consulted Dr. Montanez (surgeon) who will see the patient in the ED. Patient will be admitted to ICU. He performed bedside aspiration of abscess at right axilla with purulent material collected and sent for culture. [facility] notified of admission at 1630 , potential need for ICU, severe sepsis/endocarditis/septic emboli, and possible source in an axillary abscess which was drained in ED by surgery. At time of admission patient had stable airway and breathing was nonlabored. - Critical Care Time Critical Care Time: 75-104 min Discharge - Discharge Plan Condition: Stable Disposition: ADMITTED TO [facility] documentation as recorded by the Chinmay lambert Alfonso accurately reflects the service I personally performed and the decisions made by , Yoni Manzano MD.
== END 2017-05-28 15:59 | disposition expired | DRG 720 ==
LOC: ED 15:08 → ICU 17:20
PROVIDERS: ADMIT Hospitalist; ATTEND Internal Medicine Critical Care Medicine
PROC: 0J9D3ZX Drainage of Right Upper Arm Subcutaneous Tissue and Fascia, Percutaneous Approach, Diagnostic (ICD-10-PCS; principal; 2017-05-26)
PROC: 0BH17EZ Insertion of Endotracheal Airway into Trachea, Via Natural or Artificial Opening (ICD-10-PCS; 2017-05-27)
PROC: 3E033XZ Introduction of Vasopressor into Peripheral Vein, Percutaneous Approach (ICD-10-PCS; 2017-05-27)
DX: A41.9 Sepsis, unspecified organism (principal); R65.21 Severe sepsis with septic shock; J96.01 Acute respiratory failure with hypoxia; N17.0 Acute kidney failure with tubular necrosis; I33.0 Acute and subacute infective endocarditis; R57.0 Cardiogenic shock; I26.90 Septic pulmonary embolism without acute cor pulmonale; I26.01 Septic pulmonary embolism with acute cor pulmonale; J80 Acute respiratory distress syndrome; D68.8 Other specified coagulation defects; E87.2 Acidosis; I50.23 Acute on chronic systolic (congestive) heart failure; G93.41 Metabolic encephalopathy; L02.411 Cutaneous abscess of right axilla; D69.6 Thrombocytopenia, unspecified; F19.11 Other psychoactive substance abuse, in remission; K75.89 Other specified inflammatory liver diseases; I50.813 Acute on chronic right heart failure; R00.1 Bradycardia, unspecified; J45.909 Unspecified asthma, uncomplicated; F17.210 Nicotine dependence, cigarettes, uncomplicated; F11.90 Opioid use, unspecified, uncomplicated; E87.6 Hypokalemia; Z98.51 Tubal ligation status; Z91.040 Latex allergy status; Z91.048 Other nonmedicinal substance allergy status; Z88.1 Allergy status to other antibiotic agents
CPT/HCPCS: 36415; 36600; 71010; 71275; 74000; 76700; 80048; 80053; 80202; 81003; 81015; 82803; 83605; 83615; 83735; 84100; 84484; 85025; 85060; 85610; 85730; 86703; 86803; 87040; 87070; 87077; 87086; 87186; 87205; 87640; 87641; 93005; 93306; 94003; 94760; A9270-GY; C1751; J0330; J0610; J0692; J1720; J2060; J2250; J2270; J2405; J2543; J2704; J3010; J3370; J3475; J3480; J7060; P9045; Q9967